=== PATIENT | female | born 1960 | race American Indian/Alaskan Native ===

== ENCOUNTER 2017-08-10 16:50 | Inpatient (IN) | payer MEDICAID ==
[2017-08-10] MEDS ORDERED: ASPIRIN PO ONE (17:16)
[2017-08-10 17:37] LABS: Basophils % (Auto) 0.8 % (0.0-1.8); Eosinophils # (Auto) 0.1 K/mm3 (0.0-0.4); Eosinophils % (Auto) 1.3 % (0.0-4.3); Hematocrit 44.2 % (30.3-42.9); Hemoglobin 14.8 gm/dl (10.1-14.3); Lymphocytes # (Auto) 2.6 K/mm3 (1.2-5.4); Lymphocytes % (Auto) 50.9 % (13.4-35.0); Mean Corpuscular HGB Conc 34 % (30-34); Mean Corpuscular Hemoglobin 30 pg (28-32); Mean Corpuscular Volume 88 fl (79-97); Monocytes # (Auto) 0.4 K/mm3 (0.0-0.8); Monocytes % (Auto) 7.2 % (0.0-7.3); Platelet Count 176 K/mm3 (140-440); Red Blood Count 5.03 M/mm3 (3.65-5.03); Red Cell Distribution Width 14.5 % (13.2-15.2)
[2017-08-10 18:22] LABS: BUN/Creatinine Ratio 12; Blood Urea Nitrogen 11 mg/dL (7-17); Calcium 9.3 mg/dL (8.4-10.2); Hemolysis Index 12
[2017-08-10] MEDS ORDERED: ZOFRAN IV ONE (21:14)
[2017-08-10] MEDS ORDERED: MORPHINE IV ONE (21:14)
--- NOTE | 2017-08-10 21:19 | Emergency Department Report ---
ED Chest Pain HPI - General Chief Complaint: Chest Pain Stated Complaint: CHEST PAIN Time Seen by Provider: 08/10/17 20:46 Source: patient Mode of arrival: Ambulatory Limitations: No Limitations - History of Present Illness Initial Comments: Patient is 57 years old female history of coronary artery disease status post CABG in 2014. Patient presented to the ER complaining of left-sided chest pain , pressure and sometimes sharp in nature. Patient stated that pain started 2 days ago. She stated that is similar to when she had heart attack. Patient denied any shortness of breath, fever or cough. MD Complaint: chest pain -: days(s) Onset: during rest Pain Location: left chest Severity: moderate Severity scale (0 -10): 10 Quality: sharp Consistency: constant Improves With: nothing - Related Data Home Medications Medication Instructions Recorded Confirmed Last Taken Acetaminophen [Pain Relief] 650 mg PO Q6H PRN 08/17/14 09/12/14 1 Day Ago ~08/16/14 Aspirin [Aspirin BABY CHEW TAB] 81 mg PO QDAY 08/17/14 09/12/14 1 Day Ago ~08/16/14 Atorvastatin [Lipitor] 40 mg PO QHS 08/17/14 09/12/14 1 Day Ago ~08/16/14 Docusate Sodium [Colace] 100 mg PO BID PRN 08/17/14 09/12/14 1 Day Ago ~08/16/14 Ferrous Sulfate [Feosol] 325 mg PO QDAY 08/17/14 09/12/14 1 Day Ago ~08/16/14 Folic Acid 0.4 mg PO QDAY 08/17/14 09/12/14 1 Day Ago ~08/16/14 Gabapentin [Neurontin] 300 mg PO Q8H 08/17/14 09/12/14 1 Day Ago ~08/16/14 Levothyroxine [Synthroid] 125 mcg PO QAM 08/17/14 09/12/14 1 Day Ago ~08/16/14 Metoprolol [Lopressor] 25 mg PO BID 08/17/14 09/12/14 1 Day Ago ~08/16/14 Omeprazole [PriLOSEC] 20 mg PO QDAY 08/17/14 09/12/14 1 Day Ago ~08/16/14 Ticagrelor [Brilinta] 90 mg PO BID 08/17/14 09/12/14 1 Day Ago ~08/16/14 oxyCODONE /ACETAMINOPHEN [Percocet 1 tab PO Q6HR PRN 08/17/14 09/12/14 1 Day Ago 5/325] ~08/16/14 Allergies Allergy/AdvReac Type Severity Reaction Status Date / Time Iodinated Contrast- Oral and Allergy Unknown Verified 08/17/14 13:10 IV Dye [Iodinated Contrast Media - IV Dye] tramadol Allergy Unknown Verified 08/17/14 13:10 Heart Score - HEART Score History: Moderately suspicious EKG: Non-specific Age: 45-65 Risk factors: > 3 risk factors or hx of atherosclerotic disease Troponin: < normal limit HEART Score: 5 - Critical Actions Critical Actions: 4-6 pts:12-16.6% risk of adverse cardiac event. Should be admitted ED Review of Systems ROS: Stated complaint: CHEST PAIN Other details as noted in HPI Comment: All other systems reviewed and negative Constitutional: denies: chills, fever Respiratory: denies: cough, orthopnea, shortness of breath, SOB with exertion, SOB at rest, wheezing Cardiovascular: chest pain Gastrointestinal: denies: abdominal pain, nausea, vomiting, diarrhea, constipation, hematemesis, melena, hematochezia Genitourinary: denies: urgency, frequency Neurological: denies: headache, weakness, numbness, paresthesias, confusion, abnormal gait, vertigo ED Past Medical Hx - Past Medical History Hx Hypertension: Yes Hx Heart Attack/AMI: Yes Hx Congestive Heart Failure: No Hx Diabetes: No Hx GERD: Yes Hx Asthma: No Hx COPD: No Additional medical history: hypothyroid - Surgical History Hx Open Heart Surgery: Yes (June 29, 2014 Triple Bypass) - Social History Smoking Status: Current Every Day Smoker Substance Use Type: None - Medications Home Medications: Home Medications Medication Instructions Recorded Confirmed Last Taken Type Acetaminophen [Pain Relief] 650 mg PO Q6H PRN 08/17/14 09/12/14 1 Day Ago History ~08/16/14 Aspirin [Aspirin BABY CHEW TAB] 81 mg PO QDAY 08/17/14 09/12/14 1 Day Ago History ~08/16/14 Atorvastatin [Lipitor] 40 mg PO QHS 08/17/14 09/12/14 1 Day Ago History ~08/16/14 Docusate Sodium [Colace] 100 mg PO BID PRN 08/17/14 09/12/14 1 Day Ago History ~08/16/14 Ferrous Sulfate [Feosol] 325 mg PO QDAY 08/17/14 09/12/14 1 Day Ago History ~08/16/14 Folic Acid 0.4 mg PO QDAY 08/17/14 09/12/14 1 Day Ago History ~08/16/14 Gabapentin [Neurontin] 300 mg PO Q8H 08/17/14 09/12/14 1 Day Ago History ~08/16/14 Levothyroxine [Synthroid] 125 mcg PO QAM 08/17/14 09/12/14 1 Day Ago History ~08/16/14 Metoprolol [Lopressor] 25 mg PO BID 08/17/14 09/12/14 1 Day Ago History ~08/16/14 Omeprazole [PriLOSEC] 20 mg PO QDAY 08/17/14 09/12/14 1 Day Ago History ~08/16/14 Ticagrelor [Brilinta] 90 mg PO BID 08/17/14 09/12/14 1 Day Ago History ~08/16/14 oxyCODONE /ACETAMINOPHEN [Percocet 1 tab PO Q6HR PRN 08/17/14 09/12/14 1 Day Ago History 5/325] ~08/16/14 ED Physical Exam - General Limitations: No Limitations General appearance: alert, in no apparent distress - Head Head exam: Present: atraumatic, normocephalic, normal inspection - Eye Eye exam: Present: normal appearance, PERRL - ENT ENT exam: Present: normal exam, normal orophraynx, mucous membranes moist - Neck Neck exam: Present: normal inspection, full ROM. Absent: tenderness, meningismus, lymphadenopathy, thyromegaly - Respiratory Respiratory exam: Present: normal lung sounds bilaterally. Absent: respiratory distress, wheezes, rales, rhonchi, stridor, chest wall tenderness, accessory muscle use, decreased breath sounds, prolonged expiratory - Cardiovascular Cardiovascular Exam: Present: regular rate, normal rhythm, normal heart sounds - GI/Abdominal GI/Abdominal exam: Present: soft, normal bowel sounds. Absent: distended, tenderness, guarding, rebound, rigid, organomegaly, mass, bruit, pulsatile mass , hernia - Extremities Exam Extremities exam: Present: normal inspection, full ROM, normal capillary refill. Absent: tenderness, pedal edema, joint swelling - Back Exam Back exam: Present: normal inspection, full ROM. Absent: CVA tenderness (L) - Neurological Exam Neurological exam: Present: alert, oriented X3, CN II-XII intact, normal gait - Skin Skin exam: Present: warm, intact, normal color ED Course Vital Signs 08/10/17 08/10/17 08/10/17 17:03 19:56 19:58 Temperature 97.5 F L Pulse Rate 85 73 71 Respiratory 18 9 L Rate Blood Pressure 194/106 183/94 O2 Sat by Pulse 100 Oximetry 08/10/17 08/10/17 08/10/17 20:00 20:02 20:04 Temperature Pulse Rate 72 75 75 Respiratory 12 11 L 16 Rate Blood Pressure 195/111 195/111 195/111 O2 Sat by Pulse Oximetry 08/10/17 08/10/17 08/10/17 20:06 20:08 20:15 Temperature Pulse Rate 71 72 Respiratory 12 28 H 18 Rate Blood Pressure 195/111 175/97 O2 Sat by Pulse 98 Oximetry 08/10/17 20:18 Temperature 98.9 F Pulse Rate Respiratory Rate Blood Pressure O2 Sat by Pulse Oximetry PENNY score - Penny Score Age > 65: (0) No Aspirin use within the Past 7 Days: (1) Yes 3 or more CAD Risk Factors: (1) Yes 2 or more Angina events in past 24 hrs: (1) Yes Known CAD with more than 50% Stenosis: (0) No Elevated Cardiac Markers: (0) No ST Deviation Greater than 0.5mm: (0) No PENNY Score: 3 ED Medical Decision Making - Lab Data Result diagrams: 08/10/17 17:19 08/10/17 17:19 - EKG Data -: EKG Interpreted by Sd EKG shows normal: sinus rhythm Rate: normal - EKG Data Interpretation: no acute changes - Radiology Data Radiology results: report reviewed Chest x-ray unremarkable for acute findings. - Medical Decision Making I discussed the patient is Dr. Gomez, he agreed to admit the patient to his service. Critical care attestation.: If time is entered above; I have spent that time in minutes in the direct care of this critically ill patient, excluding procedure time. ED Disposition Clinical Impression: CAD (coronary artery disease), Hx of CABG, Chest pain Disposition: DC-09 OP ADMIT IP TO THIS HOSP Is pt being admited?: Yes Condition: Stable Instructions: Chest Pain (ED) Referrals: PRIMARY CARE, [Primary Care Provider] - 3-5 Days
--- NOTE | 2017-08-10 21:38 | XRay Report ---
FINAL REPORT EXAM: XR CHEST 1V AP HISTORY: chest pain TECHNIQUE: upright single view chest PRIORS: None. FINDINGS: Cardiac and mediastinal contours are unremarkable. No focal pulmonary infiltrate is identified. No pleural fluid collection seen. Pulmonary vasculature is unremarkable. Sternotomy wires and mediastinal surgical clips are noted IMPRESSION: Postoperative changes likely reflecting prior CABG No acute findings in the chest
[2017-08-10] MEDS ORDERED: BENADRYL IV ONE (22:03)
[2017-08-10] MEDS ORDERED: APRESOLINE IV PRN (23:10)
[2017-08-10] MEDS ORDERED: APRESOLINE ONE (23:14)
--- NOTE | 2017-08-11 06:33 | History and Physical Report ---
History of Present Illness Date of examination: 08/10/17 Date of admission: 08/10/17 22:25 Chief complaint: Chief complaint: Left-sided chest pain for 1 day History of present illness: History of Present Illness: Patient is 57 years old female history of coronary artery disease status post CABG in 2014. Patient presented to the ER complaining of left-sided chest pain , pressure and sometimes sharp in nature. Patient stated that pain started 2 days ago. She stated that is similar to when she had heart attack. Patient denied any shortness of breath, fever or cough. No exacerbating or relieving factors. Pain is about 8 on scale of 1-10 Past Medical History Hx Hypertension: Yes Hx Heart Attack/AMI: Yes Hx GERD: Yes Additional medical history: hypothyroid Surgical History Hx Open Heart Surgery: Yes (June 29, 2014 Triple Bypass) Family history Htn Social History Smoking Status: Current Every Day Smoker Substance Use Type: None Medications Home Medications: Home Medications Medication Instructions Recorded Confirmed Last Taken Type Acetaminophen [Pain Relief] 650 mg PO Q6H PRN 08/17/14 09/12/14 1 Day Ago History ~08/16/14 Aspirin [Aspirin BABY CHEW TAB] 81 mg PO QDAY 08/17/14 09/12/14 1 Day Ago History ~08/16/14 Atorvastatin [Lipitor] 40 mg PO QHS 08/17/14 09/12/14 1 Day Ago History ~08/16/14 Docusate Sodium [Colace] 100 mg PO BID PRN 08/17/14 09/12/14 1 Day Ago History ~08/16/14 Ferrous Sulfate [Feosol] 325 mg PO QDAY 08/17/14 09/12/14 1 Day Ago History ~08/16/14 Folic Acid 0.4 mg PO QDAY 08/17/14 09/12/14 1 Day Ago History ~08/16/14 Gabapentin [Neurontin] 300 mg PO Q8H 08/17/14 09/12/14 1 Day Ago History ~08/16/14 Levothyroxine [Synthroid] 125 mcg PO QAM 08/17/14 09/12/14 1 Day Ago History ~08/16/14 Metoprolol [Lopressor] 25 mg PO BID 08/17/14 09/12/14 1 Day Ago History ~08/16/14 Omeprazole [PriLOSEC] 20 mg PO QDAY 08/17/14 09/12/14 1 Day Ago History ~08/16/14 Ticagrelor [Brilinta] 90 mg PO BID 08/17/14 09/12/14 1 Day Ago History ~08/16/14 oxyCODONE /ACETAMINOPHEN [Percocet 1 tab PO Q6HR PRN 08/17/14 09/12/14 1 Day Ago History 5/325] ~08/16/14 Review of Systems ROS: Stated complaint: CHEST PAIN Other details as noted in HPI Comment: All other systems reviewed and negative Constitutional: denies: chills, fever Respiratory: denies: cough, orthopnea, shortness of breath, SOB with exertion, SOB at rest, wheezing Cardiovascular: chest pain Gastrointestinal: denies: abdominal pain, nausea, vomiting, diarrhea, constipation, hematemesis, melena, hematochezia Genitourinary: denies: urgency, frequency Neurological: denies: headache, weakness, numbness, paresthesias, confusion, abnormal gait, vertigo 14 point review of systems done----otherwise negative Medications and Allergies Allergies Allergy/AdvReac Type Severity Reaction Status Date / Time Iodinated Contrast- Oral and Allergy Unknown Verified 08/17/14 13:10 IV Dye [Iodinated Contrast Media - IV Dye] tramadol Allergy Unknown Verified 08/17/14 13:10 Home Medications Medication Instructions Recorded Confirmed Last Taken Type Acetaminophen [Pain Relief] 650 mg PO Q6H PRN 08/17/14 09/12/14 1 Day Ago History ~08/16/14 Aspirin [Aspirin BABY CHEW TAB] 81 mg PO QDAY 08/17/14 09/12/14 1 Day Ago History ~08/16/14 Atorvastatin [Lipitor] 40 mg PO QHS 08/17/14 09/12/14 1 Day Ago History ~08/16/14 Docusate Sodium [Colace] 100 mg PO BID PRN 08/17/14 09/12/14 1 Day Ago History ~08/16/14 Ferrous Sulfate [Feosol] 325 mg PO QDAY 08/17/14 09/12/14 1 Day Ago History ~08/16/14 Folic Acid 0.4 mg PO QDAY 08/17/14 09/12/14 1 Day Ago History ~08/16/14 Gabapentin [Neurontin] 300 mg PO Q8H 08/17/14 09/12/14 1 Day Ago History ~08/16/14 Levothyroxine [Synthroid] 125 mcg PO QAM 08/17/14 09/12/14 1 Day Ago History ~08/16/14 Metoprolol [Lopressor] 25 mg PO BID 08/17/14 09/12/14 1 Day Ago History ~08/16/14 Omeprazole [PriLOSEC] 20 mg PO QDAY 08/17/14 09/12/14 1 Day Ago History ~08/16/14 Ticagrelor [Brilinta] 90 mg PO BID 08/17/14 09/12/14 1 Day Ago History ~08/16/14 oxyCODONE /ACETAMINOPHEN [Percocet 1 tab PO Q6HR PRN 08/17/14 09/12/14 1 Day Ago History /325] ~08/16/14 Active Meds: Active Medications Hydralazine HCl (Apresoline) 10 mg IV Q2H PRN PRN Reason: Hypertension Last Admin: 08/10/17 23:11 Dose: 10 mg Exam - Constitutional Vitals: Temp Pulse Resp BP Pulse Ox 98.0 F 67 18 156/82 99 08/11/17 00:50 08/11/17 01:10 08/11/17 00:50 08/11/17 00:50 08/11/17 00:50 General appearance: Present: no acute distress, well-nourished - EENT Eyes: Present: PERRL ENT: hearing intact, clear oral mucosa - Neck Neck: Present: supple, normal ROM - Respiratory Respiratory effort: normal Respiratory: bilateral: CTA - Cardiovascular Rhythm: regular Heart Sounds: Present: S1 & S2. Absent: rub, click - Extremities Extremities: no ischemia, pulses intact, pulses symmetrical, No edema Peripheral Pulses: within normal limits - Abdominal General gastrointestinal: Present: soft, non-tender, non-distended, normal bowel sounds Female genitourinary: Present: normal - Rectal Rectal Exam: deferred - Integumentary Integumentary: Present: clear, warm, dry - Musculoskeletal Musculoskeletal: gait normal, strength equal bilaterally - Psychiatric Psychiatric: appropriate mood/affect, intact judgment & insight - Neurologic Neurologic: CNII-XII intact, moves all extremities - Allied Health Allied health notes reviewed: nursing, case management Results - Labs CBC & Chem 7: 08/10/17 17:19 08/10/17 17:19 Labs: Laboratory Last Values WBC 5.2 K/mm3 (4.5-11.0) 08/10/17 17: RBC 5.03 M/mm3 (3.65-5.03) 08/10/17 17:19 Hgb 14.8 gm/dl (10.1-14.3) H 08/10/17 17:19 Hct 44.2 % (30.3-42.9) H 08/10/17 17:19 MCV 88 fl (79-97) 08/10/17 17:19 MCH 30 pg (28-32) 08/10/17 17: MCHC 34 % (30-34) 08/10/17 17: RDW 14.5 % (13.2-15.2) 08/10/17 17:19 Plt Count 176 K/mm3 (140-440) 08/10/17 17:19 Lymph % (Auto) 50.9 % (13.4-35.0) H 08/10/17 17:19 [place] % (Auto) 7.2 % (0.0-7.3) 08/10/17 17:19 Eos % (Auto) 1.3 % (0.0-4.3) 08/10/17 17:19 Baso % (Auto) 0.8 % (0.0-1.8) 08/10/17 17:19 Lymph # 2.6 K/mm3 (1.2-5.4) 08/10/17 17:19 [place] # 0.4 K/mm3 (0.0-0.8) 08/10/17 17:19 Eos # 0.1 K/mm3 (0.0-0.4) 08/10/17 17:19 Baso # 0.0 K/mm3 (0.0-0.1) 08/10/17 17:19 Seg Neutrophils % 39.8 % (40.0-70.0) L 08/10/17 17: Seg Neutrophils # 2.1 K/mm3 (1.8-7.7) 08/10/17 17:19 D-Dimer < 135.0 ng/mlDDU (0-234) 08/10/17 21:17 Sodium 142 mmol/L (137-145) 08/10/17 17:19 Potassium 4.1 mmol/L (3.6-5.0) 08/10/17 17:19 Chloride 100.9 mmol/L (98-107) 08/10/17 17:19 Carbon Dioxide 29 mmol/L (22-30) 08/10/17 17:19 Anion Gap 16 mmol/L 08/10/17 17:19 BUN 11 mg/dL (7-17) 08/10/17 17:19 Creatinine 0.9 mg/dL (0.7-1.2) 08/10/17 17:19 Estimated GFR > 60 ml/min 08/10/17 17:19 BUN/Creatinine Ratio 12 % 08/10/17 17:19 Glucose 93 mg/dL (65-100) 08/10/17 17:19 Calcium 9.3 mg/dL (8.4-10.2) 08/10/17 17:19 Troponin T < 0.010 ng/mL (0.00-0.029) 08/11/17 01:01 Short CBC 08/10/17 Range/Units 17:19 WBC 5.2 (4.5-11.0) K/mm3 Hgb 14.8 H (10.1-14.3) gm/dl Hct 44.2 H (30.3-42.9) % Plt Count 176 (140-440) K/mm3 BMP 08/10/17 17:19 Sodium 142 Potassium 4.1 Chloride 100.9 Carbon Dioxide 29 BUN 11 Creatinine 0.9 Glucose 93 Calcium 9.3 Cardiac Enzymes 08/10/17 08/10/17 08/11/17 Range/Units 17:19 19:53 01:01 Troponin T < 0.010 < 0.010 < 0.010 (0.00-0.029) ng/mL - Imaging and Cardiology EKG: report reviewed (normal sinus rhythm heart rate of 78 LVH with secondary repolarization abnormality) Chest x-ray: report reviewed (no acute findings) Assessment and Plan Advance Directives: Yes (full code) VTE prophylaxis?: Chemical Plan of care discussed with patient/family: Yes - Patient Problems (1) Chest pain Current Visit: Yes Status: Acute Qualifiers: Ischemic chest pain type: unspecified angina pectoris type Plan to address problem: Chest pain workup Acute coronary syndrome Serial cardiac enzymes and Lexiscan (2) CAD (coronary artery disease) Current Visit: Yes Status: Chronic Qualifiers: Coronary Disease-Associated Artery/Lesion type: [place] artery Plan to address problem: Patient has history of CABG Continue aspirin and Brilinta (3) Hx of CABG Current Visit: Yes Status: Chronic Plan to address problem: Continue Brilinta (4) HLD (hyperlipidemia) Current Visit: No Status: Chronic (5) HTN (hypertension) Current Visit: No Status: Chronic Qualifiers: Hypertension type: essential hypertension Qualified Code(s): I10 - Essential (primary) hypertension Plan to address problem: Continue antihypertensives in the form of metoprolol (6) Hypothyroidism Current Visit: No Status: Chronic Qualifiers: Hypothyroidism type: acquired Qualified Code(s): E03.9 - Hypothyroidism, unspecified Plan to address problem: Continue Synthroid 125 g by mouth daily Check TSH (7) Hyperlipidemia Current Visit: Yes Status: Chronic Qualifiers: Hyperlipidemia type: mixed hyperlipidemia Qualified Code(s): E78.2 - Mixed hyperlipidemia Plan to address problem: Continue statins (8) Peripheral neuropathy Current Visit: Yes Status: Chronic Qualifiers: Peripheral neuropathy type: polyneuropathy, unspecified Qualified Code(s): G62.9 - Polyneuropathy, unspecified Plan to address problem: Continue gabapentin (9) DVT prophylaxis Current Visit: No Status: Chronic Plan to address problem: Continue heparin subcutaneously 5000 units every 12 hours
[2017-08-11] MEDS ORDERED: SODIUM CHLORIDE FLUSH SYRINGE 10 ML IV PRN (06:39)
[2017-08-11] MEDS ORDERED: TYLENOL PO PRN ×2 (06:39→06:41)
[2017-08-11] MEDS ORDERED: MORPHINE IV PRN (06:39)
[2017-08-11] MEDS ORDERED: AMBIEN PO PRN (06:39)
[2017-08-11] MEDS ORDERED: ZOFRAN IV PRN (06:39)
[2017-08-11] MEDS ORDERED: COLACE PO PRN (06:41)
[2017-08-11] MEDS ORDERED: NACL 0.9% 1000 ML 1,000 ML IV SCH (07:00)
[2017-08-11] MEDS ORDERED: LEXISCAN IV ONE ×2 (08:23→08:25)
[2017-08-11] MEDS ORDERED: MORPHINE ONE (08:25)
[2017-08-11] MEDS ORDERED: PROTONIX PO SCH (10:00)
[2017-08-11] MEDS ORDERED: FEOSOL PO SCH (10:00)
[2017-08-11] MEDS ORDERED: BABY ASPIRIN PO SCH (10:00)
[2017-08-11] MEDS: SYNTHROID PO SCH (11:14)
[2017-08-11] MEDS: HEPARIN SUB-Q SCH ×2 (11:15→23:00)
[2017-08-11] MEDS: BRILINTA PO SCH ×2 (11:15→22:52)
--- NOTE | 2017-08-11 12:18 | Progress Note ---
Assessment and Plan Assessment and plan: --Malignant hypertension; continue current antihypertensives and when necessary medications --History of coronary artery disease status post CABG; continue current cardiac medications --Atypical chest pain; setting of significant coronary artery disease Patient would benefit by stress test, however due to uncontrolled blood pressures Stress test was rescheduled for tomorrow, cardiology evaluation is needed --Hypothyroidism ;stable on Synthroid; --Dyslipidemia; continue lipid-lowering medications --Neuropathy; continue gabapentin --DVT prophylaxis; Lovenox Closely monitor the patient and adjust management as needed f/u stress test, if negative and patient is stable and may be discharged home Plan of care discussed with the patient and her nurse History Interval history: Patient seen and examined medical records reviewed Admitted for chest pain, scheduled for stress test However due to uncontrolled blood pressures patient refused stress test Rescheduled for tomorrow Patient complains of some vague chest pain As for more pain medications alert awake oriented 3 not in acute distress Vital signs reviewed Hospitalist Physical - Constitutional Vitals: Temp Pulse Resp BP Pulse Ox 98.0 F 69 20 155/90 99 08/11/17 05:32 08/11/17 09:10 08/11/17 09:05 08/11/17 05:32 08/11/17 05:32 General appearance: Present: no acute distress, well-nourished - EENT Eyes: Present: PERRL, EOM intact - Neck Neck: Present: supple, normal ROM - Respiratory Respiratory effort: normal Respiratory: bilateral: diminished, negative: rales, rhonchi, wheezing - Cardiovascular Rhythm: regular Heart Sounds: Present: S1 & S2 - Extremities Extremities: no ischemia, No edema Peripheral Pulses: within normal limits - Abdominal General gastrointestinal: soft, non-tender, non-distended, normal bowel sounds - Integumentary Integumentary: Present: clear, warm - Psychiatric Psychiatric: appropriate mood/affect, cooperative - Neurologic Neurologic: CNII-XII intact, moves all extremities Results - Labs CBC & Chem 7: 08/10/17 17:19 08/10/17 17:19 Labs: Laboratory Last Values WBC 5.2 K/mm3 (4.5-11.0) 08/10/17 17:19 RBC 5.03 M/mm3 (3.65-5.03) 08/10/17 17:19 Hgb 14.8 gm/dl (10.1-14.3) H 08/10/17 17:19 Hct 44.2 % (30.3-42.9) H 08/10/17 17:19 MCV 88 fl (79-97) 08/10/17 17:19 MCH 30 pg (28-32) 08/10/17 17:19 MCHC 34 % (30-34) 08/10/17 17:19 RDW 14.5 % (13.2-15.2) 08/10/17 17:19 Plt Count 176 K/mm3 (140-440) 08/10/17 17:19 Lymph % (Auto) 50.9 % (13.4-35.0) H 08/10/17 17:19 [place] % (Auto) 7.2 % (0.0-7.3) 08/10/17 17:19 Eos % (Auto) 1.3 % (0.0-4.3) 08/10/17 17:19 Baso % (Auto) 0.8 % (0.0-1.8) 08/10/17 17:19 Lymph # 2.6 K/mm3 (1.2-5.4) 08/10/17 17:19 [place] # 0.4 K/mm3 (0.0-0.8) 08/10/17 17:19 Eos # 0.1 K/mm3 (0.0-0.4) 08/10/17 17:19 Baso # 0.0 K/mm3 (0.0-0.1) 08/10/17 17:19 Seg Neutrophils % 39.8 % (40.0-70.0) L 08/10/17 17:19 Seg Neutrophils # 2.1 K/mm3 (1.8-7.7) 08/10/17 17:19 D-Dimer < 135.0 ng/mlDDU (0-234) 08/10/17 21:17 Sodium 142 mmol/L (137-145) 08/10/17 17:19 Potassium 4.1 mmol/L (3.6-5.0) 08/10/17 17:19 Chloride 100.9 mmol/L (98-107) 08/10/17 17:19 Carbon Dioxide 29 mmol/L (22-30) 08/10/17 17:19 Anion Gap 16 mmol/L 08/10/17 17:19 BUN 11 mg/dL (7-17) 08/10/17 17:19 Creatinine 0.9 mg/dL (0.7-1.2) 08/10/17 17:19 Estimated GFR > 60 ml/min 08/10/17 17:19 BUN/Creatinine Ratio 12 % 08/10/17 17:19 Glucose 93 mg/dL (65-100) 08/10/17 17:19 Calcium 9.3 mg/dL (8.4-10.2) 08/10/17 17:19 Troponin T < 0.010 ng/mL (0.00-0.029) 08/11/17 01:01
[2017-08-11] MEDS: LOPRESSOR PO SCH ×2 (12:23→22:52)
[2017-08-11] MEDS: PEPCID IV SCH ×2 (12:24→22:56)
[2017-08-11] MEDS: SODIUM CHLORIDE FLUSH SYRINGE 10 ML IV SCH ×2 (12:25→22:56)
[2017-08-11] MEDS: NEURONTIN PO SCH ×2 (13:20→16:45)
[2017-08-11] MEDS: PERCOCET 5/325 PO PRN ×2 (13:52→19:34)
[2017-08-11] MEDS: APRESOLINE PO SCH (18:30)
[2017-08-11] MEDS: APRESOLINE IV PRN (23:04)
[2017-08-12] MEDS ORDERED: BENADRYL IV PRN (00:48)
[2017-08-12] MEDS: NEURONTIN PO SCH (00:59)
[2017-08-12] MEDS: APRESOLINE PO SCH (04:18)
[2017-08-12] MEDS: SYNTHROID PO SCH ×2 (05:24→05:33)
[2017-08-12] MEDS: APRESOLINE IV PRN (05:25)
[2017-08-12] MEDS: PERCOCET 5/325 PO PRN (05:31)
[2017-08-12 06:25] LABS: Basophils # (Auto) 0.1 K/mm3 (0.0-0.1); Eosinophils % (Auto) 0.5 % (0.0-4.3); Hematocrit 45.6 % (30.3-42.9); Hemoglobin 15.2 gm/dl (10.1-14.3); Lymphocytes # (Auto) 1.4 K/mm3 (1.2-5.4); Lymphocytes % (Auto) 22.2 % (13.4-35.0); Mean Corpuscular HGB Conc 33 % (30-34); Mean Corpuscular Hemoglobin 29 pg (28-32); Mean Corpuscular Volume 87 fl (79-97); Monocytes # (Auto) 0.5 K/mm3 (0.0-0.8); Monocytes % (Auto) 8.4 % (0.0-7.3); Red Blood Count 5.22 M/mm3 (3.65-5.03); Red Cell Distribution Width 14.4 % (13.2-15.2)
[2017-08-12 06:43] LABS: Alanine Aminotransferase 8 units/L (7-56); BUN/Creatinine Ratio 13; Blood Urea Nitrogen 10 mg/dL (7-17); Calcium 9.6 mg/dL (8.4-10.2); Chol/HDL Ratio 2.65 %; HDL Cholesterol 67 mg/dL (40-59); Hemolysis Index 35; LDL Cholesterol,Direct 107 mg/dL (50-130)
[2017-08-12 06:47] LABS: Platelet Count 171 K/mm3 (140-440)
[2017-08-12 07:42] LABS: Albumin 3.9 g/dL (3.9-5)
[2017-08-12 08:30] VITALS: BP 161/84
--- NOTE | 2017-08-12 09:50 | Discharge Summary ---
Providers - Providers Date of Admission: 08/10/17 22:25 Date of discharge: 08/12/17 Attending physician: ELISEO MIRELES Primary care physician: [employer] Hospitalization Condition: Stable Disposition: DC-01 TO HOME OR SELFCARE Time spent for discharge: 32 min Core Measure Documentation - Palliative Care Palliative Care/ Comfort Measures: Not Applicable - Core Measures Any of the following diagnoses?: none Exam - Constitutional Vitals: Temp Pulse Resp BP Pulse Ox 97.6 F 70 20 161/84 100 08/12/17 07:38 08/12/17 07:38 08/12/17 07:38 08/12/17 07:38 08/12/17 07:38 General appearance: Present: no acute distress, well-nourished - EENT Eyes: Present: PERRL, EOM intact - Neck Neck: Present: supple, normal ROM - Respiratory Respiratory effort: normal Respiratory: negative: rales, rhonchi, wheezing - Cardiovascular Rhythm: regular Heart Sounds: Present: S1 & S2 - Extremities Extremities: no ischemia, No edema Peripheral Pulses: within normal limits - Abdominal General gastrointestinal: Present: soft, non-tender, non-distended, normal bowel sounds - Integumentary Integumentary: Present: clear, warm - Musculoskeletal Musculoskeletal: strength equal bilaterally - Psychiatric Psychiatric: appropriate mood/affect, cooperative - Neurologic Neurologic: moves all extremities Plan Activity: advance as tolerated Diet: other (cardiac diet) Additional Instructions: If you have chest pain or shortness of breath, contact M.D. or go to emergency room Follow up with: PRIMARY MD DENIA [Primary Care Provider] - 3-5 Days SHWETA OCHOA MD [Staff Physician] - 7 Days Prescriptions: Acetaminophen [Acetaminophen TAB] 650 mg PO Q6H PRN #20 tablet PRN Reason: Pain Aspirin [Aspirin BABY CHEW TAB] 81 mg PO QDAY #30 tab.chew Lisinopril [Zestril TAB] 20 mg PO QDAY #30 tablet Omeprazole Magnesium [PriLOSEC Otc] 20 mg PO QDAY #30 tablet.
== END 2017-08-12 10:10 | disposition home or self-care (01) | DRG 303 ==
LOC: ED 16:50 → 4A 22:25
PROVIDERS: ADMIT Internal Medicine; ATTEND Internal Medicine
DX: I25.110 Atherosclerotic heart disease of native coronary artery with unstable angina pectoris (principal); I10 Essential (primary) hypertension; I25.2 Old myocardial infarction; K21.9 Gastro-esophageal reflux disease without esophagitis; F17.210 Nicotine dependence, cigarettes, uncomplicated; E03.9 Hypothyroidism, unspecified; R07.89 Other chest pain; E78.5 Hyperlipidemia, unspecified; E78.2 Mixed hyperlipidemia; G62.9 Polyneuropathy, unspecified; Z95.1 Presence of aortocoronary bypass graft; Z79.82 Long term (current) use of aspirin
CPT/HCPCS: 36415; 71045; 78452; 80048; 80053; 80061; 83036; 84443; 84484; 85025; 85379; 93005; 93010; 96374; 99406; A9270-GY; A9502; J0360; J1200; J1644; J2270; J2405; J2785

== ENCOUNTER 2019-02-11 06:21 | Observation (INO) | payer MEDICAID ==
[2019-02-11] MEDS ORDERED: ASPIRIN EC 325 MG TAB PO ONE (06:41)
[2019-02-11] MEDS: SODIUM CHLORIDE 0.9% 500 ML 500 ML IV SCH ×2 (07:27→08:40)
[2019-02-11] MEDS ORDERED: CLOPIDOGREL 75 MG TAB ONE (07:29)
[2019-02-11 07:43] LABS: INR 1.03 (0.87-1.13)
[2019-02-11] MEDS ORDERED: CLOPIDOGREL 75 MG TAB PO SCH (08:00)
[2019-02-11] MEDS ORDERED: HEPARIN/NS 5000 UNIT/500ML 1,000 ML IR ONE (08:03)
[2019-02-11] MEDS ORDERED: MIDAZOLAM 2 MG/2 ML INJ ONE (08:04)
[2019-02-11] MEDS ORDERED: fentaNYL 100 MCG/2 ML INJ ONE (08:04)
[2019-02-11] MEDS ORDERED: LIDOCAINE (2%) 20 MG/1 ML VIAL 20 ML MDV INFILTRATI ONE (08:04)
[2019-02-11] MEDS: hydrALAZINE 20 MG/1 ML INJ ONE ×2 (08:51→08:58)
[2019-02-11] MEDS: HEPARIN 10,000 UNITS/10 ML VIAL ONE ×2 (08:58→09:32)
[2019-02-11] MEDS ORDERED: NITROGLYCERIN SYRINGE 3 ML ONE ×2 (08:59→09:19)
[2019-02-11] MEDS ORDERED: ALUM-MAG HYDROXIDE-SIMETHICONE 200-200-20MG/5ML ORAL LIQD 30 ML ONE (09:18)
[2019-02-11] MEDS ORDERED: CLOPIDOGREL 300 MG TAB ONE (09:18)
--- NOTE | 2019-02-11 10:00 | Cardiac Catherization Report ---
LEFT HEART CATHETERIZATION WITH PERCUTANEOUS CORONARY INTERVENTION REPORT WITH INTRAVASCULAR ULTRASOUND CLINICAL INFORMATION: This is a 58-year-old -[place] female who is a smoker, slurred speech, hypertension, noncompliant with meds at times with known coronary artery disease, bypass in 2015, had occluded grafts and had PCI of RCA for chronic total occlusion with 3 drug-eluting stents, 3.5 proximal to mid and distally 2.5 x 38. Prior to the bifurcation, OM1 has a 2.75 stent, left main patent, LAD proximal 30% with normal LV function, presents with recurrent chest pain despite being on nitrates, beta blockers, and some Ranexa, [place]on classification 2-3. Procedure was done with moderate sedation. Total sedation time was 45 minutes, started at 8:40 a.m., finished at 9:25 a.m. PROCEDURE DETAILS: Procedure was performed in the right common femoral artery, sterile technique, local anesthesia, 5-Thai groin sheath inserted. PROCEDURE FINDINGS: Left system engaged JL4 catheter. Left main is a large caliber vessel that is patent with mild irregularities, bifurcates into medium caliber LAD, proximal 30%. The rest of the LAD is patent with mild irregularities. Diagonal 1, diagonal 2 are small caliber vessel, less than 1.5 mm are patent. Circumflex medium caliber vessel that has proximal 80% lesion prior to mid circumflex stent that is patent and it bifurcates into a small to medium caliber OM1 and OM2 that are patent. RCA engaged with a JR4 catheter, is a large dominant vessel stents from proximally to the distal are patent and the crux is a 20% in-stent restenosis at the distal portion of the stent, there is a 95% lesion partially within the stent also. Prior to the bifurcation of a [id number] caliber PDA and PLV, there are mild luminal irregularities. LV gram done in ITAL[place] and MCCLOUD view shows normal LV function, EF 55-60%, LVEDP of 27 mm. LV was 218, aortic is 218/109. No gradient across the aortic valve on pullback. 5-Thai catheters were taken over a guidewire, so decided with PCI of the bifurcating lesion of RCA. The patient performed the PCI of the distal RCA bifurcating lesion change out the 5-Thai groin sheath to a 6-Thai groin sheath. 1. Used a JR4 guide catheter to engage RCA. 2. [place] wire into the distal 3. Balloon the distal RCA across the bifurcation with a 2.25 x 12 mm balloon at 12 atmospheres. 4. Reduced stenosis considerably. 5. Intracoronary nitroglycerin was given. 6. Intravascular ultrasound shows two layers of stents in the RCA, diffuse disease. Stents were opposed proximally and distally. Distal reference vessel was 2.25 x 2.4. 7. Stented the distal RCA into the PDA with a drug-eluting Xience 2.25 x 12 mm at 15 atmospheres. 8. Post-dilated the stent prior to the bifurcation with a noncompliant 2.5 x 8 mm balloon at 18 atmospheres. 9. Repeat intravascular ultrasound showed stent was well opposed and expanded, but just a diffusely diseased vessel and distal reference vessel stent was well opposed and expanded and no plaque shift noted into the PLV on IVUS and angiographically. 10. Coronary wires were removed. Repeat angiogram with excellent angiographic result, reduced stenosis from 95% down to 0. 11. Stent well opposed and expanded across the bifurcation of the PDA and distal RCA across the PLV with a drug-eluting Xience 2.5 x 12 mm postdilated with 2.5 x 8. 12. No plaque shift noted in the PLV. 13. A 6-Thai guiding catheter taken over guidewire, 6-Thai groin sheath sewn in. No hematoma, no bleeding. SUMMARY: 1. Successful PCI of the distal RCA bifurcating lesion with a drug-eluting Xience 2.25 x 12 mm postdilated with 2.5 x 8. 2. PLV is patent. PDA is patent, proximal to distal stents are patent. At the crux of the RCA, there is a 20% in-stent restenosis. By IVUS, stents were well opposed and expanded with diffuse disease. 3. Left main patent, LAD proximal 30%, rest of the vessel that is patent. Mild irregularities are medium caliber vessel. Circumflex proximal 80% prior to mid circumflex stent patent, and OM1, OM2 patent. [id number] caliber vessel with normal LV function. Post-PCI care. Continue aspirin, Plavix, and aggressive blood pressure control and smoking cessation discussed in detail with the patient and patient's family. JOB# [id number] VRM/NTS
[2019-02-11] MEDS ORDERED: NON-FORMULARY EACH (Amlodipine 5 MG) PO SCH (10:15)
[2019-02-11] MEDS ORDERED: ACETAMINOPHEN 325 MG TAB PO PRN (11:00)
[2019-02-11] MEDS ORDERED: SODIUM CHLORIDE 0.9% 1000 ML 1,000 ML IV SCH (11:00)
[2019-02-11] MEDS ORDERED: DOCUSATE SODIUM 100 MG CAP PO PRN (11:00)
[2019-02-11] MEDS ORDERED: LISINOPRIL 20 MG TAB PO SCH (12:00)
[2019-02-11] MEDS ORDERED: SODIUM CHLORIDE 0.9% 1000 ML 1,000 ML ONE (13:09)
[2019-02-11] MEDS: amLODIPine 5 MG TAB PO SCH (13:52)
[2019-02-11] MEDS: PANTOPRAZOLE 20 MG TAB PO SCH (13:52)
[2019-02-11] MEDS: METOPROLOL TARTRATE 25 MG TAB PO SCH ×2 (13:52→21:21)
[2019-02-11] MEDS: GABAPENTIN 300 MG CAP PO SCH ×2 (13:52→21:20)
[2019-02-11] MEDS ORDERED: METHADONE 10 MG TAB PO SCH (14:07)
[2019-02-11] MEDS ORDERED: METOCLOPRAMIDE 10 MG/2 ML INJ ONE (14:32)
[2019-02-11] MEDS ORDERED: METOCLOPRAMIDE 10 MG/2 ML INJ IV ONE (14:34)
[2019-02-11] MEDS: hydrALAZINE 20 MG/1 ML INJ IV PRN ×2 (15:27→22:39)
[2019-02-11] MEDS: MORPHINE 2 MG/1 ML INJ IV PRN (15:39)
[2019-02-11] MEDS: RANOLAZINE ER 500 MG TAB 12HR PO SCH (21:20)
[2019-02-11] MEDS ORDERED: LORazepam 2 MG/ML VIAL IV ONE (23:00)
[2019-02-12] MEDS: hydrALAZINE 20 MG/1 ML INJ IV PRN (05:49)
[2019-02-12] MEDS: MORPHINE 2 MG/1 ML INJ IV PRN (05:49)
[2019-02-12] MEDS: GABAPENTIN 300 MG CAP PO SCH ×2 (05:56→13:09)
[2019-02-12] MEDS ORDERED: LEVOTHYROXINE 125 MCG TAB PO SCH (06:00)
[2019-02-12 06:07] LABS: Basophils % (Auto) 0.4 % (0.0-1.8); Hematocrit 43.7 % (30.3-42.9); Hemoglobin 14.3 gm/dl (10.1-14.3); Lymphocytes # (Auto) 1.1 K/mm3 (1.2-5.4); Lymphocytes % (Auto) 11.4 % (13.4-35.0); Mean Corpuscular HGB Conc 33 % (30-34); Mean Corpuscular Volume 88 fl (79-97); Monocytes # (Auto) 0.6 K/mm3 (0.0-0.8); Monocytes % (Auto) 6.4 % (0.0-7.3); Platelet Count 161 K/mm3 (140-440); Red Blood Count 4.99 M/mm3 (3.65-5.03); Red Cell Distribution Width 14.2 % (13.2-15.2)
[2019-02-12 06:28] LABS: Creatine Kinase MB 1.9 ng/mL (0.0-4.0)
[2019-02-12 06:31] LABS: BUN/Creatinine Ratio 18; Blood Urea Nitrogen 14 mg/dL (7-17); Calcium 9.4 mg/dL (8.4-10.2); Hemolysis Index 0
--- NOTE | 2019-02-12 08:42 | XRay Report ---
CHEST 1 VIEW INDICATION / CLINICAL INFORMATION: Post percutaneous coronary intervention. COMPARISON: 08/10/2017 FINDINGS: HEART / MEDIASTINUM: Stable, with changes of CABG noted. LUNGS / PLEURA: No significant pulmonary or pleural abnormality. No pneumothorax. IMPRESSION: 1. No acute finding. No significant change. Signer Name: Mathew Garvey MD Signed: 02/12/2019 8:38 AM Workstation Name: [id number]
--- NOTE | 2019-02-12 09:45 | Progress Note ---
Assessment and Plan Post PCI lab stable no chest pain groin site hematoma. Patient's blood pressures elevated with urgency increase lisinopril 40 mg continue Norvasc 5 mg continue beta kaitlynn and Ranexa. Continue dual antiplatelet aspirin and Plavix. And statin. Advised patient importance of compliance of medication and again stressed importance of smoking cessation. if Blood pressure improves we'll discharge - Patient Problems (1) Hypertensive urgency Current Visit: Yes Status: Acute (2) Abnormal nuclear cardiac imaging test Current Visit: No Status: Resolved (3) Chest pain Current Visit: No Status: Chronic Qualifiers: Ischemic chest pain type: stable angina pectoris (4) Coronary artery disease Current Visit: No Status: Chronic Qualifiers: Coronary Disease-Associated Artery/Lesion type: [place] artery [place] vs. transplanted heart: [place] heart Associated angina: with stable angina Qualified Code(s): I25.118 - Atherosclerotic heart disease of [place] coronary artery with other forms of angina pectoris (5) Hyperlipemia Current Visit: No Status: Chronic Qualifiers: Hyperlipidemia type: mixed hyperlipidemia (6) Smoker Current Visit: Yes Status: Chronic Subjective Date of service: 02/12/19 Principal diagnosis: post pci Interval history: no chest pain or groin pain Objective Vital Signs Temp Pulse Resp BP BP Pulse Ox 02/12/19 05:49 85 20 02/12/19 02:59 99.5 F 18 02/12/19 02:58 99.5 F 87 18 196/98 98 02/11/19 23:57 20 98 02/11/19 23:13 100.8 F H 93 H 16 146/85 97 02/11/19 23:00 90 02/11/19 22:39 89 198/99 02/11/19 21:21 90 198/99 02/11/19 19:24 99.9 F H 86 18 198/99 100 02/11/19 17:10 78 170/88 02/11/19 16:19 97.9 F 81 18 193/92 99 02/11/19 15:46 80 02/11/19 15:44 80 174/91 02/11/19 15:41 84 179/89 02/11/19 15:27 76 202/109 02/11/19 15:15 77 194/105 02/11/19 15:02 76 201/105 02/11/19 15:00 78 202/109 02/11/19 14:00 86 18 172/88 100 02/11/19 13:52 77 172/88 02/11/19 13:43 76 12 156/93 100 02/11/19 13:30 77 12 165/84 100 02/11/19 13:15 74 15 127/75 100 02/11/19 13:04 70 19 113/62 100 02/11/19 12:58 72 12 122/58 100 02/11/19 12:53 75 12 135/81 100 02/11/19 12:43 71 14 139/80 100 02/11/19 12:30 70 16 141/79 100 02/11/19 12:15 70 13 152/80 98 02/11/19 12:02 70 17 137/80 100 02/11/19 11:30 69 16 142/86 100 02/11/19 11:15 70 17 162/80 100 02/11/19 11:00 69 17 155/81 100 02/11/19 10:45 69 14 138/80 100 02/11/19 10:30 70 20 151/80 98 02/11/19 10:15 67 16 157/87 02/11/19 10:02 71 15 152/83 100 02/11/19 09:50 98.2 F 70 12 148/77 100 - Physical Examination General: Appears Well, No Apparent Distress HEENT: Positive: PERRL, EOMI Neck: Positive: neck supple, trachea midline Cardiac: Positive: Reg Rate and Rhythm Lungs: Positive: Normal Exam, clear to auscultation Neuro: Positive: Other (slurreed speech chronic) Abdomen: Positive: Soft /Rectal: Normal Prostate, No Masses Skin: Musculoskeletal: No Fluid Collection, No Pain, Normal Range of Motion Gait: Normal Gait Extremities: Absent: edema - Labs and Meds Cardiac Enzymes 02/12/19 Range/Units 05:04 CK-MB (CK-2) 1.9 (0.0-4.0) ng/mL CBC 02/12/19 Range/Units 05:04 WBC 9.9 (4.5-11.0) K/mm3 RBC 4.99 (3.65-5.03) M/mm3 Hgb 14.3 (10.1-14.3) gm/dl Hct 43.7 H (30.3-42.9) % Plt Count 161 (140-440) K/mm3 Lymph # 1.1 L (1.2-5.4) K/mm3 [place] # 0.6 (0.0-0.8) K/mm3 Eos # 0.0 (0.0-0.4) K/mm3 Baso # 0.0 (0.0-0.1) K/mm3 Comprehensive Metabolic Panel 02/12/19 Range/Units 05:04 Sodium 136 L (137-145) mmol/L Potassium 3.8 (3.6-5.0) mmol/L Chloride 99.2 (98-107) mmol/L Carbon Dioxide 21 L (22-30) mmol/L BUN 14 (7-17) mg/dL Creatinine 0.8 (0.7-1.2) mg/dL Glucose 130 H (65-100) mg/dL Calcium 9.4 (8.4-10.2) mg/dL - Imaging and Cardiology Cardiac cath: report reviewed (see report) - Telemetry EKG Rhythm: Sinus Rhythm
[2019-02-12] MEDS ORDERED: LISINOPRIL 20 MG TAB PO SCH ×2 (10:00→12:00)
[2019-02-12] MEDS ORDERED: CLOPIDOGREL 75 MG TAB PO SCH (10:00)
[2019-02-12] MEDS ORDERED: NON-FORMULARY EACH (Omeprazole [Prilosec] 20 MG) PO SCH (10:00)
[2019-02-12] MEDS ORDERED: ASPIRIN 81 MG TAB CHEW PO SCH ×2 (10:00)
[2019-02-12] MEDS ORDERED: FERROUS SULFATE 325 MG TAB PO SCH (10:00)
[2019-02-12] MEDS ORDERED: FOLIC ACID 1 MG TAB PO SCH (10:00)
[2019-02-12] MEDS ORDERED: METHADONE 10 MG TAB PO SCH (10:00)
[2019-02-12] MEDS: RANOLAZINE ER 500 MG TAB 12HR PO SCH (10:36)
[2019-02-12] MEDS: PANTOPRAZOLE 20 MG TAB PO SCH (10:36)
[2019-02-12] MEDS: METOPROLOL TARTRATE 25 MG TAB PO SCH (11:46)
[2019-02-12] MEDS: amLODIPine 5 MG TAB PO SCH (13:08)
[2019-02-12 13:25] VITALS: BP 103/70
--- NOTE | 2019-02-12 13:45 | Short Stay Summary ---
Short Stay Documentation Date of service: 02/12/19 - History H&P: obtained from office - Allergies and Medications Current Medications: Allergies Iodinated Contrast Media [Iodinated Contrast Media - IV Dye] Allergy (Severe, Verified 02/11/19 07:32) Swelling itching iodine Allergy (Severe, Verified 02/11/19 07:32) Swelling ondansetron HCl [From Zofran (as hydrochloride)] Allergy (Severe, Verified 02/11/19 07:32) Rash tramadol Allergy (Severe, Verified 02/11/19 07:32) Swelling Home Medications Medication Instructions Recorded Confirmed Last Taken Type Folic Acid [Folvite] 1 tab PO DAILY 07/23/13 02/10/19 02/10/19 History 1 tab Atorvastatin (Nf) [Lipitor (Nf)] 20 mg PO HS 06/23/14 02/10/19 02/10/19 History 20 mg Ferrous Sulfate [Feosol 325mg] 325 mg PO DAILY 06/23/14 02/10/19 02/10/19 History 325 mg Docusate Sodium [Colace CAP] 100 mg PO BID PRN 08/17/14 02/10/19 12/13/18 History 100 mg Gabapentin 300 mg PO Q8H 08/17/14 02/10/19 02/10/19 History 300 mg Levothyroxine [Synthroid] 125 mcg PO QAM 08/17/14 02/10/19 02/10/19 History 125 mcg Metoprolol [Lopressor TAB] 25 mg PO BID 08/17/14 02/10/19 02/10/19 History 25 mg Omeprazole [PriLOSEC] 20 mg PO QDAY 08/17/14 02/10/19 01/27/19 History 20 mg Ranolazine ER [Ranexa ER] 500 mg PO BID #60 tablet 04/03/15 02/10/19 02/10/19 Rx 500 mg amLODIPine 5 mg PO DAILY #30 04/03/15 02/10/19 02/10/19 Rx 5 mg Acetaminophen [Acetaminophen TAB] 650 mg PO Q6H PRN #20 tablet 08/12/17 02/10/19 02/08/19 Rx 650 mg Aspirin [Aspirin BABY CHEW TAB] 81 mg PO QDAY #30 tab.chew 08/12/17 02/11/19 02/11/19 06:55 Rx 325 mg Lisinopril [Zestril TAB] 20 mg PO QDAY #30 tablet 08/12/17 02/10/19 02/10/19 Rx 20 mg Clopidogrel [Plavix] 75 mg PO DAILY 02/10/19 02/11/19 02/11/19 07:25 History 75 mg ISOSORBIDE MONOnitrate [Imdur ER] 30 mg PO BID 02/10/19 02/10/19 02/10/19 History 30 mg Methadone [Dolophine] 4 tab PO DAILY 02/10/19 02/10/19 02/10/19 History 40 mg Multivitamin [One-Daily 1 tab PO DAILY 02/10/19 02/10/19 02/10/19 History Multi-Vitamin] 1 tab Active Medications Acetaminophen (Tylenol) 650 mg PO Q6H PRN PRN Reason: PAIN Amlodipine Besylate (Amlodipine) 5 mg PO QDAY [facility] Last Admin: 02/12/19 13:08 Dose: 5 mg Documented by: Aspirin (Baby Aspirin) 81 mg PO QDAY [facility] Last Admin: 02/12/19 10:36 Dose: 81 mg Documented by: Atorvastatin Calcium (Lipitor) 20 mg PO HS [facility] Last Admin: 02/11/19 21:21 Dose: 20 mg Documented by: Clopidogrel Bisulfate (Plavix) 75 mg PO DAILY [facility] Last Admin: 02/12/19 10:36 Dose: 75 mg Documented by: Docusate Sodium (Colace) 100 mg PO BID PRN PRN Reason: Constipation Ferrous Sulfate (Feosol) 325 mg PO DAILY [facility] Last Admin: 02/12/19 10:36 Dose: 325 mg Documented by: Folic Acid (Folvite) 1 mg PO DAILY [facility] Last Admin: 02/12/19 10:36 Dose: 1 mg Documented by: Gabapentin (Gabapentin) 300 mg PO Q8HR [facility] Last Admin: 02/12/19 13:09 Dose: Not Given Documented by: Hydralazine HCl (Apresoline) 10 mg IV Q6H PRN PRN Reason: HTN SBP>180 Last Admin: 02/12/19 05:49 Dose: 10 mg Documented by: Isosorbide Mononitrate (Imdur) 30 mg PO BID [facility] Last Admin: 02/12/19 11:46 Dose: 30 mg Documented by: Levothyroxine Sodium (Synthroid) 125 mcg PO DAILY@0600 [facility] Last Admin: 02/12/19 05:57 Dose: Not Given Documented by: Lisinopril (Zestril) 20 mg PO QDAY [facility] Last Admin: 02/12/19 13:08 Dose: 20 mg Documented by: Methadone HCl (Dolophine) 40 mg PO DAILY [facility] Last Admin: 02/12/19 10:37 Dose: 40 mg Documented by: Metoprolol Tartrate (Metoprolol) 25 mg PO BID [facility] Last Admin: 02/12/19 11:46 Dose: 25 mg Documented by: Morphine Sulfate (Morphine) 2 mg IV Q5MIN PRN PRN Reason: Chest Pain unrelieved by NTG Last Admin: 02/12/19 05:49 Dose: 2 mg Documented by: Pantoprazole Sodium (Protonix) 20 mg PO QDAY [facility] Last Admin: 02/12/19 10:36 Dose: 20 mg Documented by: Ranolazine (Ranexa Er) 500 mg PO BID [facility] Last Admin: 02/12/19 10:36 Dose: 500 mg Documented by: - Physical exam General appearance: no acute distress Integumentary: no rash, no growths, no abnormal pigmentation HEENT: Atraumatic, PERRLA Lungs: Clear to auscultation Heart: Regular rate, Normal S1, Normal S2 Extremities: no ischemia, pulses intact, pulses symmetrical Neurological: Normal gait, Normal speech, Strength at 5/5 X4 ext - Brief post op/procedure progress note Date of procedure: 02/11/19 Pre-op diagnosis: CAD Post-op diagnosis: same Procedure: LHC with PCI - see dictated cath report Anesthesia: local Estimated blood loss: none Condition: stable - Disposition Condition at discharge: Good Disposition: DC-01 TO HOME OR SELFCARE - Discharge Diagnoses (1) CAD (coronary artery disease) Status: Chronic Qualifiers: Coronary Disease-Associated Artery/Lesion type: [place] artery (2) Stented coronary artery Status: Chronic (3) Hx of CABG Status: Chronic (4) HTN (hypertension) Status: Chronic Qualifiers: Hypertension type: essential hypertension Qualified Code(s): I10 - Essential (primary) hypertension (5) Hyperlipemia Status: Chronic Qualifiers: Hyperlipidemia type: mixed hyperlipidemia Qualified Code(s): E78.2 - Mixed hyperlipidemia (6) Smoker Status: Chronic Short Stay Discharge Plan Activity: advance as tolerated Diet: low fat, low cholesterol, low salt Wound: open to air, keep clean and dry, per your surgeon's advice Follow up with: REJI LYMAN MD [Primary Care Provider] - 7 Days SHWETA OCHOA MD [Staff Physician] - 7 Days (02/16/2019 @ 10:00AM) Prescriptions: Clopidogrel [Plavix] 75 mg PO DAILY #30
== END 2019-02-12 16:14 | disposition home or self-care (01) ==
LOC: CATHLABREC 06:21 → 4A 10:08
PROVIDERS: ADMIT Internal Medicine; ATTEND Internal Medicine
DX: I25.10 Atherosclerotic heart disease of native coronary artery without angina pectoris (principal); I10 Essential (primary) hypertension; I16.0 Hypertensive urgency; R94.39 Abnormal result of other cardiovascular function study; R07.89 Other chest pain; G89.29 Other chronic pain; E78.5 Hyperlipidemia, unspecified; F17.200 Nicotine dependence, unspecified, uncomplicated; Z86.73 Personal history of transient ischemic attack (TIA), and cerebral infarction without residual deficits; Z95.5 Presence of coronary angioplasty implant and graft; Z95.1 Presence of aortocoronary bypass graft; Z79.02 Long term (current) use of antithrombotics/antiplatelets; Z79.899 Other long term (current) drug therapy
CPT/HCPCS: 36415; 71045; 80048; 82550; 82553; 82962; 84484; 85025; 85347; 85610; 85730; 92978; 93005; 93010; 93458; 96374; 96375; 96376; A9270; C1725; C1753; C1769; C1874; C1887; C1894; C9600; G0378; J0360; J1644; J2060; J2250; J2270; J2765; J3010; J7030; J7040; 92928; Q9967

== ENCOUNTER 2021-09-11 07:47 | Observation (INO) | payer MEDICAID ==
[2021-09-11] MEDS ORDERED: SODIUM CHLORIDE 0.9% 100 ML ONE ×2 (08:30→10:08)
[2021-09-11] MEDS ORDERED: SODIUM CHLORIDE 0.9% 500 ML 500 ML ONE ×2 (08:30→10:16)
[2021-09-11] MEDS ORDERED: BIVALIRUDIN 250 MG INJ IV ONE ×2 (08:30→10:07)
[2021-09-11] MEDS ORDERED: NITROGLYCERIN SYRINGE 3 ML ONE (08:33)
[2021-09-11] MEDS ORDERED: WATER FOR INJ Sterile (PF) 10 ML ONE (08:34)
[2021-09-11] MEDS ORDERED: CLOPIDOGREL 75 MG TAB ONE (08:49)
[2021-09-11] MEDS ORDERED: SODIUM CHLORIDE 0.9% 500 ML 500 ML IV SCH (09:00)
[2021-09-11] MEDS ORDERED: diphenhydrAMINE 50 MG/ML VIAL IV NR (09:10)
[2021-09-11] MEDS ORDERED: diphenhydrAMINE 50 MG/ML VIAL ONE (09:15)
[2021-09-11] MEDS: MIDAZOLAM 2 MG/2 ML INJ ONE ×2 (09:34→09:57)
[2021-09-11] MEDS: fentaNYL 100 MCG/2 ML INJ ONE ×2 (09:35→09:58)
[2021-09-11] MEDS: LIDOCAINE (1%) 10 MG/1 ML VIAL 20 ML MDV ONE ×2 (09:35→09:59)
[2021-09-11] MEDS: ASPIRIN 81 MG TAB CHEW PO SCH (09:36)
[2021-09-11] MEDS: CLOPIDOGREL 75 MG TAB PO SCH ×2 (09:36→17:18)
[2021-09-11] MEDS ORDERED: hydrALAZINE 20 MG/1 ML INJ ONE (10:07)
[2021-09-11] MEDS ORDERED: SODIUM CHLORIDE 0.9% 50 ML ONE (10:09)
[2021-09-11] MEDS ORDERED: CLOPIDOGREL 300 MG TAB ONE (10:42)
[2021-09-11] MEDS ORDERED: ACETAMINOPHEN 325 MG TAB PO PRN (11:00)
--- NOTE | 2021-09-11 11:12 | Short Stay Summary ---
Short Stay Documentation Date of service: 09/11/21 - History H&P: obtained from office - Allergies and Medications Current Medications: Allergies Iodinated Contrast Media [Iodinated Contrast Media - IV Dye] Allergy (Severe, Verified 03/21/21 11:49) Swelling itching iodine Allergy (Severe, Verified 03/21/21 11:49) Swelling ondansetron HCl [From Zofran (as hydrochloride)] Allergy (Severe, Verified 03/21/21 11:49) Rash tramadol Allergy (Severe, Verified 03/21/21 11:49) Swelling Home Medications Medication Instructions Recorded Confirmed Last Taken Type Folic Acid [Folvite] 1 tab PO DAILY PRN 07/23/13 09/11/21 09/10/21 History 1 tab Ferrous Sulfate [Feosol 325mg] 325 mg PO DAILY 06/23/14 09/11/21 09/10/21 History 325 mg Levothyroxine [Synthroid] 125 mcg PO QAM 08/17/14 09/11/21 09/10/21 History 125 mcg amLODIPine 5 mg PO DAILY #30 04/03/15 09/11/21 09/10/21 Rx 5 mg Multivitamin [One-Daily 1 tab PO DAILY 02/10/19 09/11/21 09/10/21 History Multi-Vitamin] 1 tab bisacodyL [Dulcolax suppos] 10 mg SC PRN PRN 12/19/19 03/21/21 12/14/19 21:00 History Acetaminophen [Acetaminophen TAB] 650 mg PO Q4H PRN tablet 12/21/19 09/11/21 09/10/21 Rx 325 mg Aspirin [Aspirin BABY CHEW TAB] 81 mg PO DAILY #30 tab.chew 12/21/19 09/11/21 09/10/21 Rx 81 mg AtorvaSTATin [Lipitor] 20 mg PO QHS #30 tablet 12/21/19 09/11/21 09/10/21 Rx 20 mg Clopidogrel [Plavix] 75 mg PO DAILY #30 tablet 12/21/19 03/21/21 09/10/21 Rx 75 mg Nicotine [Habitrol] 14 mg TD QDAY #1 patch 12/21/19 03/21/21 Unknown Rx Nitroglycerin [Nitrostat] 0.4 mg SL .Q5MIN PRN #20 tablet 12/21/19 03/21/21 Unknown Rx Pantoprazole [Protonix TAB] 40 mg PO QDAC #30 tablet 12/21/19 09/11/21 09/10/21 Rx 40 mg Ranolazine ER [Ranexa ER] 500 mg PO BID #60 tablet 12/21/19 09/11/21 09/10/21 Rx 500 mg amLODIPine 5 mg PO DAILY #30 tablet 12/21/19 09/11/21 09/10/21 Rx 5 mg lisinopriL [Zestril TAB] 20 mg PO DAILY tablet 12/21/19 09/11/21 09/10/21 Rx 20 mg Promethazine [Phenergan] 25 mg PO Q6HR PRN #10 tab 03/21/21 09/11/21 Unknown Rx Hydralazine HCl 50 mg PO TID 09/11/21 09/11/21 09/10/21 History 50 mg ISOSORBIDE MONOnitrate [Imdur ER] 30 mg PO BID 09/11/21 09/11/21 09/10/21 History 30 mg Methadone [Dolophine] 80 mg PO BID 09/11/21 09/11/21 09/10/21 History 40 mg Metoprolol [Lopressor TAB] 50 mg PO BID 09/11/21 09/11/21 09/10/21 History 50 mg Active Medications Acetaminophen (Acetaminophen 325 Mg Tab) 650 mg PO Q4H PRN PRN Reason: Pain MILD(1-3)/Fever >100.5/KAN Hydrocodone Bitart/Acetaminophen (Hydrocodone/Acetaminophen 5-325 Mg Tab) 1 each PO Q6H PRN PRN Reason: Pain, Moderate (4-6) Aspirin (Aspirin 81 Mg Tab Chew) 81 mg PO QDAY REGINALDO Last Admin: 09/11/21 09:36 Dose: 81 mg Sodium Chloride (Nacl 0.9% 500 Ml) 500 mls @ 50 mls/hr IV DIRECT REGINALDO Stop: 09/11/21 18:59 Last Admin: 09/11/21 09:38 Dose: 600 mls - Physical exam Integumentary: other (Dressings clean dry and intact with no signs of bleeding or hematoma) - Brief post op/procedure progress note Date of procedure: 09/11/21 Pre-op diagnosis: CAD Post-op diagnosis: same Anesthesia: local Estimated blood loss: minimal - Hospital course Hospital course: 09/11/2021 Patient presents today for outpatient cardiac cath. Patient had PCI of circumflex. Patient tolerated procedure well without complications. Patient to be admitted and continued on DAPT therapy with aspirin 09/12/2021-patient resting in bed in no acute distress. Patient cardiac cath site has dressing clean dry and intact with no signs of bleeding or hematoma. EKG shows sinus rhythm 68 with LVH and no acute ischemic changes. Patient remains chest pain-free. Patient to continue DAPT therapy and current home medications. Patient to be discharged home today and follow-up in the office. Plan of care discussed with patient to verbalize understanding and acknowledgment. - Disposition Condition at discharge: Good Disposition: 30 STILL A PATIENT - Discharge Diagnoses (1) Diastolic dysfunction Status: Acute (2) History of CVA (cerebrovascular accident) Status: Acute (3) Ischemic cardiomyopathy Status: Acute (4) CAD (coronary artery disease) Status: Chronic Qualifiers: Coronary Disease-Associated Artery/Lesion type: [place] artery (5) DM2 (diabetes mellitus, type 2) Status: Chronic Comment: Optimal control of diabetes. (6) GERD (gastroesophageal reflux disease) Status: Chronic Qualifiers: Esophagitis presence: with esophagitis (7) H/O heart artery stent Status: Chronic (8) HLD (hyperlipidemia) Status: Chronic Qualifiers: Hyperlipidemia type: mixed hyperlipidemia Qualified Code(s): E78.2 - Mixed hyperlipidemia (9) HTN (hypertension) Status: Chronic Qualifiers: Hypertension type: essential hypertension (10) Hx of CABG Status: Chronic (11) Hyperlipemia Status: Chronic Qualifiers: Hyperlipidemia type: mixed hyperlipidemia Qualified Code(s): E78.2 - Mixed hyperlipidemia (12) Hypothyroidism Status: Chronic (13) Smoker Status: Chronic (14) Stented coronary artery Status: Chronic Short Stay Discharge Plan Activity: advance as tolerated Diet: low fat, low cholesterol, low salt Wound: keep clean and dry, per your surgeon's advice Follow up with: BING LOZA MD [Primary Care Provider] - 7 Days SHWETA DIEGO MD [Staff Physician] - 10/09/21 10:00 am (Patient follow-up with Dr. Diego on 10/09/2021 at 10 AM in our [place] location. Phone #[phone]) Prescriptions: Clopidogrel [Plavix] 75 mg PO DAILY 30 Days #30 tablet
--- NOTE | 2021-09-11 11:26 | Cardiac Catherization Report ---
DATE OF SERVICE: 09/11/2021 PROCEDURES: Left heart cath/percutaneous coronary intravascular ultrasound. ANESTHESIA: Done with moderate sedation, started at 9:34, finished at 10:34, which is 60 minutes of moderate sedation. HISTORY: This is a 61-year-old patient with history of stroke, slurred speech, smoker, coronary arterial disease with history of bypass with occluded bypass grafts with abnormal EKG, uncontrolled hypertension, presents with recurrent chest pain despite medical management, is here for left heart cath. DESCRIPTION OF PROCEDURE: Left heart catheterization performed via the left common femoral artery, sterile technique and local anesthesia. A 5-Burmese groin sheath inserted. Left system engaged using JL4 catheter. Left main is a short large vessel, is patent. LAD is a medium caliber vessel, ostial 40% lesion, mid stent in the LAD is patent. Rest of the LAD is patent with mild luminal irregularities. Diagonal 1, diagonal 2 small caliber vessel, patent. Circumflex medium caliber vessel, proximal has a focal 90-95% lesion. The mid circ stent appears to be patent and bifurcates into a small OM1, OM2. There are about 2 mm that have diffuse disease. RCA engaged with JR4, it is a large dominant vessel. Stents from proximal to distal are patent, distal stent 20% in-stent restenosis. PLV is a small vessel, patent. PDA is nearly occluded. LV gram done in [place]ORE[place] and MCCLOU[place] view shows normal LV function, EF 55-60%, LVEDP of 25 mmHg, LV is 210. Aortic is 210/101. No gradient across the aortic valve on pullback. 1. Percutaneous coronary intervention of the circumflex, changed out the 5-Burmese left groin sheath to a 6-Burmese sheath. 2. The patient was given Angiomax given the patient's HEPARIN ALLERGY. Adequate ACT was obtained and left system with an EBU 3.5 guiding catheter, crossing the distal circ with a short [place] wire. 3. Predilated with 2.5 x 8 balloon at 12 atmospheres. 4. Intravascular ultrasound showed mid lcx stent to be not completely expanded and opposed and proximal reference vessel was 3.0 x 3.4. 5. Then stented the proximal circ stent with a drug-eluting Resolute 3.0 x 15 overlapping the previously deployed mid circ stent deployed at 18 atmospheres and using a stent balloon predilated the mid circ stent at 12 atmospheres. 6. Repeat excellent angiographic result, PENNY 3 flow. 7. Repeat IVUS showed stent was expanded, better expansion opposed in the mid circ and the proximal was expanded and opposed. Guiding wire was removed, multiple angiograms were done, showed excellent angiographic result, reduced stenosis from 90% down to 0, PENNY 3 flow. The 6-Burmese groin sheath was discontinued, groin sheath was sewn in, no hematoma, no bleeding. SUMMARY: 1. Successful PCI of the proximal circ with a drug-eluting Resolute 3.0 x 15, postdilated the mid circ stent with a 3.0 x 15 balloon. OM1 and OM2 are 2 mm vessels that are patent. 2. Left main is patent. LAD ostial is 40%. Mid LAD stent patent. Diagonal 1, diagonal 2 patent. 3. RCA proximal and distal stents are patent, but the distal stents have 20% in-stent restenosis. PLV is small caliber and patent. PDA is occluded and normal LV function. 4. Post-PCI care. Continue dual antiplatelet therapy. Discussed with the patient in detail. TID: [id number] RECEIPT: [id number] PETR/JERONIMO/ADRYAN [place]
[2021-09-11] MEDS ORDERED: hydrALAZINE 20 MG/1 ML INJ IV PRN (13:07)
[2021-09-11] MEDS: hydrALAZINE 25 MG TAB PO SCH ×2 (14:30→21:18)
[2021-09-11] MEDS: METHADONE 10 MG TAB PO SCH ×2 (15:21→21:17)
[2021-09-11] MEDS: HYDROcodone/ACETAMINOPHEN 5-325 MG TAB PO PRN (21:17)
[2021-09-11] MEDS: METOPROLOL TARTRATE 50 MG TAB PO SCH (21:18)
[2021-09-11] MEDS: RANOLAZINE ER 500 MG TAB 12HR PO SCH (21:19)
--- NOTE | 2021-09-12 04:26 | XRay Report ---
CHEST 1 VIEW INDICATION / CLINICAL INFORMATION: post pci. COMPARISON: Chest x-ray 03/21/2021 FINDINGS: SUPPORT DEVICES: None. HEART / MEDIASTINUM: Stable interval appearance of cardiomediastinal silhouette and poststernotomy ch anges. Heart size upper limits of normal. LUNGS / PLEURA: No significant pulmonary abnormality. BONES: No significant osseous abnormality. ADDITIONAL FINDINGS: No significant additional findings. IMPRESSION: 1. No active cardiopulmonary disease. Signer Name: Jameson Andre II, MD Signed: 09/12/2021 4:22 AM Workstation Name: [id number]
[2021-09-12] MEDS: hydrALAZINE 25 MG TAB PO SCH (06:09)
[2021-09-12] MEDS: HYDROcodone/ACETAMINOPHEN 5-325 MG TAB PO PRN (06:09)
[2021-09-12 06:10] LABS: Basophils % (Auto) 0.4 % (0.0-1.8); Eosinophils % (Auto) 0.3 % (0.0-4.3); Hematocrit 37.7 % (30.3-42.9); Lymphocytes # (Auto) 3.8 K/mm3 (1.2-5.4); Mean Corpuscular HGB Conc 32 % (30-34); Mean Corpuscular Volume 88 fl (79-97); Monocytes # (Auto) 0.7 K/mm3 (0.0-0.8); Monocytes % (Auto) 5.9 % (0.0-7.3); Platelet Count 176 K/mm3 (140-440); Red Blood Count 4.29 M/mm3 (3.65-5.03); Red Cell Distribution Width 13.7 % (13.2-15.2)
[2021-09-12 06:28] LABS: BUN/Creatinine Ratio 18; Blood Urea Nitrogen 16 mg/dL (7-17); Calcium 9.4 mg/dL (8.4-10.2); Hemolysis Index 4
[2021-09-12 06:57] LABS: Chol/HDL Ratio 3.14 %; HDL Cholesterol 64 mg/dL (40-59); LDL Cholesterol,Direct 124 mg/dL (50-130)
[2021-09-12 08:35] VITALS: BP 129/64
[2021-09-12] MEDS ORDERED: amLODIPine 10 MG TAB PO SCH (10:00)
[2021-09-12] MEDS ORDERED: LISINOPRIL 20 MG TAB PO SCH (10:00)
[2021-09-12] MEDS ORDERED: CLOPIDOGREL 75 MG TAB PO SCH (10:00)
[2021-09-12] MEDS: METHADONE 10 MG TAB PO SCH (10:21)
[2021-09-12] MEDS: RANOLAZINE ER 500 MG TAB 12HR PO SCH (10:22)
[2021-09-12] MEDS: ASPIRIN 81 MG TAB CHEW PO SCH (10:22)
[2021-09-12] MEDS: METOPROLOL TARTRATE 50 MG TAB PO SCH (10:22)
--- NOTE | 2021-09-14 18:41 | Electrocardiograph Report ---
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
--- NOTE | 2021-09-14 18:42 | Electrocardiograph Report ---
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
--- NOTE | 2021-09-14 18:51 | Electrocardiograph Report ---
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
== END 2021-09-12 11:30 | disposition home or self-care (01) ==
LOC: CATHLABREC 07:47 → INTOOBSV 10:39 → 4A 10:39
PROVIDERS: ADMIT Internal Medicine; ATTEND Internal Medicine
DX: I25.10 Atherosclerotic heart disease of native coronary artery without angina pectoris (principal); I25.5 Ischemic cardiomyopathy; I11.0 Hypertensive heart disease with heart failure; I50.31 Acute diastolic (congestive) heart failure; E11.9 Type 2 diabetes mellitus without complications; K21.9 Gastro-esophageal reflux disease without esophagitis; E78.2 Mixed hyperlipidemia; F17.200 Nicotine dependence, unspecified, uncomplicated; E03.9 Hypothyroidism, unspecified; Z95.1 Presence of aortocoronary bypass graft; Z79.899 Other long term (current) drug therapy; Z98.890 Other specified postprocedural states; Z79.82 Long term (current) use of aspirin; Z86.73 Personal history of transient ischemic attack (TIA), and cerebral infarction without residual deficits
CPT/HCPCS: 36415; 71045; 80048; 80061; 82962; 84484; 85025; 92978; 93005; 93458; 96374; C1725; C1753; C1769; C1874; C1887; C1894; C9600; G0378; J0360; J0583; J1200; J1815; J2250; J3010; J3490; J7040; 92928; Q9967